=== PATIENT | male | born 1940 | race Caucasian/White ===

== ENCOUNTER → 2020-07-10 | Outpatient (CLI) | payer OTHER ==
[~2020-07-10] MED LIST: AMLODIPINE-VAL1 EAC3 PO; GAVISCON ES CH1 EAC1 PO; GLUCOSAMINE &1 EACH PO; LIPITOR40 MG PO; MELATONIN10 M3 PO; MULTI VITAMIN1 EACH PO; NEXIUM 40 MG CA40 M1 PO; RELAFEN500 M1 PO; TURMERIC500 M2 PO
== END ==
LOC: LAB 09:37
PROVIDERS: ATTEND Specialist
DX: Z01.812 Encounter for preprocedural laboratory examination (principal); Z20.828 Contact with and (suspected) exposure to other viral communicable diseases

== ENCOUNTER → 2020-07-13 | Outpatient (CLI) | payer OTHER ==
[~2020-07-13] VITALS: Ht 180.3 cm; Wt 90.7 kg
--- NOTE | ~2020-07-13 | P ---
[facility] [place] [address] PROCEDURE REPORT Name: MARYANN BURKS [facility] Room #: REG MARLIN Lola#: [id number] Admission: 07/13/20 Attend Phys: Ted Schmitz Discharge: Date of : 42 Report #: [id number] THIS REPORT FOR: cc: Viral Noble MD, Eric K. MD McElhinney, Christian C. MD ~ CC: Ted Noble MD DATE OF SERVICE: 07/13/2020 PROCEDURE PERFORMED: Upper endoscopy with biopsies. HISTORY OF PRESENT ILLNESS: The patient is a 79-year-old male with a long history of gastroesophageal reflux disease, seen by myself in the office on 05/31/2020 with complaints of intermittent heartburn symptoms. He had been taking Nexium 40 b.i.d. Despite this was having reflux symptoms, heartburn, even waking up at night, was also taking Gaviscon up to 10-12 pills per day. He then began taking the Nexium 30 minutes before breakfast and dinner, which has dramatically improved his symptoms. Last upper endoscopy was approximately 5 years or it was 5 years ago. Biopsies at that time for possible Brito's was negative. Due to the patient's symptoms and possible previous history of Brito's, we discussed repeating upper endoscopy today. He denies any significant dysphagia. DESCRIPTION OF PROCEDURE: The risks and benefits of the procedure were explained to the patient, those risks including but not limited to bleeding, perforation and the risk of sedation. He understood these risks and gave informed consent. Sedation was given using propofol per anesthesia. Next, using a standard Olympus upper endoscope, the scope was placed in the patient's mouth and advanced under direct vision through the esophagus, stomach and into the second portion of the duodenum. The upper and mid esophagus was normal in appearance. In the distal esophagus, a possible short segment of Brito's was noted. Biopsies were obtained. Overall, the gastric mucosa was normal. The pylorus was normal and patent. The duodenal bulb, first and second portion were all normal. The scope was then withdrawn and the procedure terminated. The patient tolerated the procedure well. IMPRESSION: 1. 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 2. Otherwise, normal upper endoscopy. RECOMMENDATIONS: 1. Await biopsy results. 2. Agree with continuing current regimen of Nexium 30 minutes prior b.i.d. [address] [address] PROCEDURE REPORT Name: MARYANN BURKS [facility] Room #: REG CLBishop Davila#: [id number] Admission: 07/13/20 Attend Phys: Ted Schmitz Discharge: Date of : 42 Report #: [id number] before meals. Thank you for allowing me to participate in his care. By: [id number] Ted Deluna MD /nt
--- NOTE | 2020-07-17 22:06 | PATH ---
[facility] [address] [place] [address] PATHOLOGY RPT PROCEDURE Name: MARYANN BURKS [facility] Room #: REG MARLIN Rios.#: [id number] Admission: 07/13/20 Date of : 42 Discharge: Report #: [id number] Path Case #: [id number] [facility] Accession Number: [id number] . 01 Material submitted: . esophagus - BIOPSY OF DISTAL ESOPHAGUS R/O BARRETTS. Modifiers: distal . 02 Diagnosis: "BX of distal esophagus R/O Brito's", biopsy: - Esophageal squamous mucosa and gastric cardiac-type mucosa with reactive changes, and mild predominantly chronic inflammation; no intestinal metaplasia or dysplasia seen. (CLW:bre;07/17/2020) QMS 07/17/2020 1511 Local . 02 Electronically signed: . Darlin Nicholson MD, Pathologist NPI- [id number] . 01 Gross description: . The specimen is received in formalin, labeled "Maryann Burks, BX of distal esophagus" and consists of 4 fragments of pink-love tissue measuring between 0.2 x 0.2 cm and 0.5 x 0.2 cm which are entirely submitted in A1. (SDY; 07/16/2020) SYU/SYU 07/16/2020 1024 Local . 02 Pathologist provided ICD-10: K20.90 . 02 CPT . 478306 Specimen Comment: A courtesy copy of this report has been sent to [phone], [phone] Specimen Comment: [phone] Specimen Comment: Report sent to / DR MALLOY Performed at: [address], [place] [id number] MD Tim Zavala MD Phone: [phone] Performed at: [address] [id number] MD Ivette Harris MD Phone: [phone]
== END | disposition home or self-care (01) ==
LOC: GI 07:06 → OR 10:37 → GI 11:00
PROVIDERS: ATTEND Specialist
DX: K21.9 Gastro-esophageal reflux disease without esophagitis (principal); R12 Heartburn
CPT/HCPCS: 62110; 62900